=== PATIENT | female | born 1990 | race African-American/Black ===

== ENCOUNTER 2024-04-18 13:38 | Emergency (ER) | payer OTHER, SELFPAY ==
[2024-04-18] VITALS (14 sets, daily range): BP systolic 74–95; BP diastolic 39–59; BMI 30.2
--- NOTE | 2024-04-18 14:09 | ED.GENMED ---
History of Present Illness
General
Chief Complaint: Foreign Body Ingestion
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
Time Seen by Provider: 04/18/24 13:41
History of Present Illness
History of Present Illness:
34-year-old female presents to the emergency room from [facility] with [facility] guards. Patient was referred to the emergency room because there is concern that she ingested a bag or bags of drugs. Patient endorses swallowing
a bag of heroin. Intermediate staff requested that we image her looking for foreign substance. Patient consents to this. Patient does endorse chronic use of heroin. She typically smokes it. She last used 2 days ago.
Phy Exam
Physical Exam
Physical Exam:
General: Awake, Alert, Oriented X3. No acute distress.
Vitals: unremarkable
Head: Atraumatic
Eyes: Pupils equal at 3 mm, EOMI
Throat: Airway intact, no exudates
Neck: Trachea midline
Lungs: Clear and equal b/l
Heart: Regular rate, no murmurs
Abd: Soft, Nontender, No pulsatile mass
Neuro: Nonfocal
Skin: Warm, dry, no rash
Extremities: pulses equal b/l, no edema
Course
Orders/Labs/Results
Orders:
Orders
04/18/24 14:08
Test Result ONCE
04/18/24 14:09
CT Abd/pel Without Iv Or Oral Urgent
Comment:
Reason For Exam: ? body packing heroin
04/18/24 14:48
Basic Metabolic Panel Urgent
Complete Blood Count/With Diff Urgent
HCG, Serum Qualitative Screen Urgent
Abnormal Lab Results
04/18/24
14:48
MPV 11.1 H fL
(7.4-10.4)
Neutrophils % 39.0 L %
(42.2-75.2)
Eosinophils % 7.0 H %
(0-6)
Carbon Dioxide 32 H mmol/L
(22-30)
04/18/24 14:48
04/18/24 14:48
Vital Signs
Initial and Last Documented VS:
Initial Vital Signs
Temp Pulse Resp BP Pulse Ox
98.1 F 87 18 95/58 100
04/18/24 13:46 04/18/24 13:46 04/18/24 13:46 04/18/24 13:46 04/18/24 13:46
Last Documented Vital Signs
Temp Pulse Resp BP Pulse Ox
98.1 F 80 12 86/59 98
04/18/24 13:46 04/18/24 18:30 04/18/24 18:30 04/18/24 18:30 04/18/24 18:15
MDM/Problems Addressed
Differential Diagnosis Includes:
Foreign body ingestion, opiate ingestion, polypharmacy ingestion
MDM/Problems Addressed:
CT does not show any evidence of a foreign body. Certainly it is possible that he may miss a small baggy. Patient is tired but is easily arousable. She has no hypoxia. She was observed for several hours without any change in her status. Patient
stable for discharge back to [facility]. Recommend close observation present.
*Radiology
Radiology exam reviewed: radiology read reviewed
*Critical Care Note
Total Time (30-74mins, 75-104mins- exclusive of procedures): Not Applicable
ED Attending Note
-
Portions of this chart may have been created with voice recognition software.� Occasional wrong word or��sound alike� substitutions may have occurred due to the inherent limitations of voice recognition software.
Discharge Plan
Departure
Patient Disposition: Intermediate
Date of Disposition: 04/18/24
Time of Disposition: 18:27
Condition: Fair
Discharge Problem:
possible swallowed foreign body
Instructions: Swallowed Objects, Adult (DC)
Referrals:
UNKNOWN - PT DOES,NOT KNOW [Family Provider] -
Activity Restrictions/Additional Instructions:
CT scan did not identify any foreign body but patient should be observed for sedation and opiate effect.
Interventions
Interventions:
*General Assessment Last Done: 04/18/24 13:52
ED- Fall Risk Assessment Last Done: 04/18/24 13:48
*ED COVID-19 Vaccine History Last Done: 04/18/24 13:53
*Nursing Disposition Last Done: 04/18/24 18:44
[place] Assessment Last Done: 04/18/24 15:22
ED- Pulmonary Assessment Last Done: 04/18/24 15:22
ED-EENT Assessment Last Done: 04/18/24 15:45
Discharge Date and Time
Discharge Date/Time: 04/18/24 18:46
Print Language: HEBREW
[2024-04-18 14:58] LABS: % Basophils 0.6 % (0-2); % Immature Granulocytes 0.2 % (0-0.5); % Monocytes 6.2 % (1.7-9.3); Absolute Eosinophils 0.4 10^3/uL (0-0.7); Absolute Monocytes 0.4 10^3/uL (0.1-0.6); Absolute Neutrophils 2.5 10^3/uL (1.4-6.5); Mean Corp Hgb Conc. 34.2 g/dL (33.0-37.0); Mean Corpuscular Hgb 29.1 pg (27.0-31.0); Mean Platelet Volume 11.1 fL (7.4-10.4); Nucleated Red Blood Cells % 0 %; Platelet Count 238 10^3/uL (130-400); Red Blood Cell Count 4.47 10^6/uL (4.20-5.40); Red Cell Dist. Width 11.8 % (11.5-14.5); White Blood Cell Count 6.3 10^3/uL (4.8-10.8)
[2024-04-18 15:12] LABS: HCG, Serum Qualitative Screen Negative
[2024-04-18 15:16] LABS: Blood Urea Nitrogen 13 mg/dl (7-17); Calcium 9.7 mg/dl (8.4-10.2); Carbon Dioxide 32 mmol/L (22-30); Chloride 101 mmol/L (98-107); Estimated Creatinine Clearance 82 ml/min; Glucose 93 mg/dl (70-99); Potassium 4.8 mmol/L (3.5-5.1); Sodium 141 mmol/L (135-145); eGFR > 60.00
== END 2024-04-18 18:46 ==
LOC: EMR 13:38
PROVIDERS: EMERGENCY PHYSICIAN Emergency Medicine
DX: Z02.2 Encounter for examination for admission to residential institution (principal)
CPT/HCPCS: 99284; 74176; 80048; 84703; 85025